=== PATIENT | male | born 1990 | race Caucasian/White ===

== ENCOUNTER 2020-09-14 17:29 | Emergency (ER) | payer OTHER ==
[~2020-09-14] VITALS: Ht 190 cm; Wt 127.0 kg
--- NOTE | 2020-09-14 17:58 | ED GU-Male ---
General Chief Complaint: - Urinary Stated Complaint: PAINFUL WITH URINATION History of Present Illness Date Seen by Provider: September 14, 2020 Time Seen by Provider: 17:50 Initial Comments 30-year-old male reports dysuria with discharge for the last few days. He did have a new partner approximately 2 weeks ago, no condoms used. No history of STDs. Denies any other complaints at this time. No history of kidney stones and no blood noted in urine. Timing/Duration: getting worse Severity/Quality: mild Location: urethral Radiation: none Activities at Onset: sexual activity Sexual Judson History: less than 2 months ago, multiple partners Associated Symptoms: denies symptoms Allergies and Home Medications Allergies Coded Allergies: No Known Drug Allergies (Unverified , 09/14/20) Home Medications Doxycycline Hyclate 100 Mg Tablet, 100 MG PO BID Prescribed by: RITESH STRANGE on 09/14/20 8053 Patient Home Medication List Home Medication List Reviewed: Yes Review of Systems Review of Systems Constitutional: no symptoms reported, see HPI Genitourinary: see HPI, burning, discharge, dysuria; denies flank pain, denies hematuria All Other Systemes Reviewed Negative Unless Noted: Yes Past Ziuuwdn-Antuns-Cqklyb Hx Past Med/Social Hx: Reviewed Nursing Past Med/Soc Hx Patient Social History Alcohol Use: Denies Use Smoking Status: Current Everyday Smoker Type Used: Cigarettes Recent Hopitalizations: No Seasonal Allergies Seasonal Allergies: No Past Medical History Surgeries: Yes (SKIN GRAFTS) Respiratory: No Cardiac: No Neurological: No Genitourinary: No Gastrointestinal: No Musculoskeletal: No Endocrine: No HEENT: No Cancer: No Blood Disorders: No Physical Exam Vital Signs Vital Signs - First Documented 09/14/20 17:50 Temp 36.5 Pulse 86 Resp 20 B/P (MAP) 135/81 (99) Pulse Ox 97 Capillary Refill : Height, Weight, BMI Height: '" Weight: lbs. oz. kg; BMI Method: General Appearance: WD/WN, no apparent distress Cardiovascular: normal peripheral pulses, regular rate, rhythm Respiratory: chest non-tender, lungs clear, normal breath sounds Gastrointestinal: normal bowel sounds, non tender, soft Back: normal inspection, no CVA tenderness, vertebral tenderness (right mid thoracic) Neurologic/Psychiatric: no motor/sensory deficits, alert, normal mood/affect, oriented x 3 Skin: normal color, warm/dry Progress/Results/Core Measures Suspected Sepsis SIRS Temperature: Pulse: Respiratory Rate: Blood Pressure / Mean: Results/Orders Lab Results Laboratory Tests Test 09/14/20 17:52 Range/Units Urine Color YELLOW Urine Clarity CLOUDY Urine pH 5.5 5-9 Urine Specific [place] 1.025 H 1.016-1.022 Urine Protein 1+ H NEGATIVE Urine Glucose (UA) NEGATIVE NEGATIVE Urine Ketones NEGATIVE NEGATIVE Urine Nitrite NEGATIVE NEGATIVE Urine Bilirubin NEGATIVE NEGATIVE Urine Urobilinogen 0.2 < = 1.0 MG/DL Urine Leukocyte Esterase 2+ H NEGATIVE Urine RBC (Auto) 2+ H NEGATIVE Urine RBC RARE /HPF Urine WBC 25-50 H /HPF Urine Squamous Epithelial Cells RARE /HPF Urine Crystals NONE /LPF Urine Bacteria TRACE /HPF Urine Casts NONE /LPF Urine Mucus NEGATIVE /LPF Urine Culture Indicated YES My Orders Orders - RITESH STRANGE Ua Culture If Indicated (09/14/20 17:35) Neis Carlos Dna Urine Test (09/14/20 17:52) Chlamydia Trachomatis Urine (09/14/20 17:52) Ceftriaxone For Im Use (Rocephin For Im (09/14/20 18:00) Lidocaine 1% Inj 20 Ml (Xylocaine 1% Inj (09/14/20 18:00) Urine Culture (09/14/20 17:52) Syphilis Antibody Screen (09/14/20 18:25) Hiv 1&2 Antibody (09/14/20 18:25) Medications Given in ED Current Medications Medications Dose Ordered Sig/Jermain Route Start Time Stop Time Status Last Admin Dose Admin Ceftriaxone Sodium 1,000 mg ONCE ONCE IM 09/14/20 18:00 09/14/20 18:01 DC 09/14/20 18:20 1,000 MG Lidocaine HCl 2.1 ml ONCE ONCE INJ 09/14/20 18:00 09/14/20 18:01 DC 09/14/20 18:20 2.1 ML Vital Signs/I&O 09/14/20 09/14/20 17:50 18:37 Temp 36.5 Pulse 86 70 Resp 20 20 B/P (MAP) 135/81 (99) 129/90 Pulse Ox 97 98 Capillary Refill : Departure Impression Primary Impression: Dysuria Additional Impression: Penile discharge, without blood Disposition: HOME, SELF-CARE Condition: Improved Departure-Patient Inst. Decision time for Depature: 18:15 Referrals: [facility] – [place] NO,LOCAL PHYSICIAN (PCP) Primary Care Physician Patient Instructions: Chlamydia (DC), Gonorrhea (DC) Add. Discharge Instructions: Avoid any sexual activity until completing all antibiotics, we will call you with the results of your tests when they are available. If any tests are positive, have partners treated as well. And avoid intercourse until they have completed full treatment. Use condoms for all sexual activity. Complete all antibiotics as prescribed. Increase water intake. You may continue with ibuprofen 800 mg alternating with Tylenol 650 mg every 4 hours for your back as needed. Establish care with a primary care provider. Return to the emergency dept for new, urgent healthcare needs. All discharge instructions reviewed with patient and/or family. Voiced understanding. Scripts Doxycycline Hyclate (Doxycycline Hyclate) 100 Mg Tablet 100 MG PO BID, #14 TAB 0 Refills Prov: RITESH STRANGE 09/14/20 RITESH STRANGE September 14, 2020 17:58
[2020-09-14] MEDS ORDERED: cefTRIAXone 1,000 MG/2.86 ml vial (IM ONLY) IM ONE (18:00)
[2020-09-14] MEDS ORDERED: LIDOCAINE 1% INJ 20 ML 20 ML VIAL INJ ONE (18:00)
[2020-09-14 18:23] LABS: BILIRUBIN,URINE NEGATIVE (NEGATIVE); CLARITY,URINE CLOUDY; COLOR,URINE YELLOW; GLUCOSE, URINE (UA) NEGATIVE (NEGATIVE); KETONES,URINE NEGATIVE (NEGATIVE); LEUKOCYTE ESTERASE ,URINE 2+ (NEGATIVE); NITRITE,URINE NEGATIVE (NEGATIVE); PH,URINE 5.5 (5-9); PROTEIN,URINE 1+ (NEGATIVE)
[2020-09-14] MEDS ORDERED: DOXY100T2 PO (18:25)
[2020-09-14 18:26] LABS: BACTERIA,URINE TRACE /HPF; RBC,URINE RARE /HPF; SQUAMOUS EPITHELIAL CELL,UR RARE /HPF; WBC,URINE 25-50 /HPF
[2020-09-14 18:37] VITALS: BP 129/90
== END 2020-09-14 18:37 | disposition home or self-care (01) ==
LOC: ER 17:32
DX: R30.0 Dysuria (principal); R36.9 Urethral discharge, unspecified; F17.210 Nicotine dependence, cigarettes, uncomplicated
CPT/HCPCS: 36415; 81000; 86703; 86780; 87077; 87088; 87185; 87491; 87591; 99284

== ENCOUNTER 2021-05-17 16:31 | Emergency (ER) | payer OTHER ==
[~2021-05-17] VITALS: Ht 190 cm; Wt 133.0 kg
[~2021-05-17 16:31] MED LIST: DOXY100T2 PO
[2021-05-17 16:40] VITALS: BP 166/88
--- NOTE | 2021-05-17 16:54 | ED Cough/URI ---
General Chief Complaint: COVID19 Suspect/Confirmed Stated Complaint: COVID POSITIVE, CONGESTION,COUGH,FEVER,DIARRHEA Source: patient Exam Limitations: no limitations History of Present Illness Date Seen by Provider: May 17, 2021 Time Seen by Provider: 16:53 Initial Comments Patient is a 30-year-old male who presents ED with flulike symptoms. Symptoms started 2 days ago. He reported body aches, fatigue, mild cough with diarrhea. Symptoms improved after taking whae-ges-ldeokfh medication. Had a positive test at home. Patient is requesting a second opinion before he can return back to work. Patient states he is feeling much better at this time. Denies sore throat, ear pain, headache, fever, abdominal pain, shortness of breath. Allergies and Home Medications Allergies Coded Allergies: No Known Drug Allergies (Unverified , 09/14/20) Patient Home Medication List Home Medication List Reviewed: Yes Doxycycline Hyclate (Doxycycline Hyclate) 100 Mg Tablet, 100 MG PO BID Prescribed by: RITESH STRANGE on 09/14/20 410 Review of Systems Review of Systems Constitutional: chills, malaise, weakness EENTM: No hearing loss, No ear pain, No nose congestion, No throat pain, No throat swelling Respiratory: cough; No short of breath, No wheezing Cardiovascular: No chest pain, No edema Gastrointestinal: No abdominal pain, No diarrhea, No nausea, No vomiting Genitourinary: No decreased output, No discharge Musculoskeletal: No back pain, No joint pain Skin: No change in color, No change in hair/nails All Other Systems Reviewed Negative Unless Noted: Yes Past Lkhgcfx-Olhrty-Mvjvvf Hx Seasonal Allergies Seasonal Allergies: No Past Medical History Surgeries: Yes (SKIN GRAFTS) Respiratory: No Cardiac: No Neurological: No Genitourinary: No Gastrointestinal: No Musculoskeletal: No Endocrine: No HEENT: No Cancer: No Blood Disorders: No Physical Exam Vital Signs - First Documented 05/17/21 16:40 Temp 36.3 Pulse 95 Resp 16 B/P (MAP) 166/88 (114) Pulse Ox 95 O2 Delivery Room Air Capillary Refill : Height: '" Weight: lbs. oz. 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 Patient requesting second opinion. Send out swab was ordered here. Results pending. Quarantine at home until results. Vital signs stable. No acute distress. Return precaution were discussed with patient. Follow-up with blood pressure reading. Patient appears in no acute distress. He states his symptoms are much better at this time. Impression Primary Impression: Viral syndrome Disposition: 01 HOME, SELF-CARE Condition: Stable Departure-Patient Inst. Decision time for Depature: 16:54 Referrals: [facility] [place] NO,LOCAL PHYSICIAN (PCP) Primary Care Physician Patient Instructions: Viral Syndrome (DC) Work/School Note: Work Release Form Date Seen in the Emergency Department: May 17, 2021 Return to Work: May 19, 2021 TAISHA FARLEY May 17, 2021 16:54
== END 2021-05-17 17:05 | disposition home or self-care (01) ==
LOC: EDUNIT# 16:31 → ER 16:35
DX: U07.1 COVID-19 (principal)
CPT/HCPCS: 87636; 99283

== ENCOUNTER 2022-01-22 17:15 | Emergency (ER) | payer SELFPAY ==
[~2022-01-22] VITALS: Ht 190 cm; Wt 150.0 kg
[2022-01-22 17:32] VITALS: BP 159/97
[2022-01-22] MEDS ORDERED: SULF-221 PO (17:53)
--- NOTE | 2022-01-22 17:54 | ED Lower Extremity ---
General Chief Complaint: Lower Extremity Stated Complaint: INGROWN TOENAIL LEFT BIG TOE Nursing Triage Note: PT REPORTS WITH LT GREAT TOE INFECTION. PER PT HE BELEIVES IT MIGHT BE AN INGROWN TOENAIL. PT HAS HAD THIS FOR ABOUT TWO WEEKS RECENTLY GETTING WORSE. PT AMB. TO FT3 WITHOUT DIFFICULTY. History of Present Illness Date Seen by Provider: Jan 22, 2022 Time Seen by Provider: 17:50 Initial Comments Patient presents to the emergency department with worsening left great toe redn ess, swelling and pain. History of ingrown toenail in the past. States that he has a 50 hour work week this week and needs the toe nail removed and taken care of. Onset: other (2 weeks) Pain/Injury Location: left 1st toe Modifying Factors: Worse With Movement Allergies and Home Medications Allergies Coded Allergies: No Known Drug Allergies (Unverified , 09/14/20) Patient Home Medication List Home Medication List Reviewed: Yes Doxycycline Hyclate (Doxycycline Hyclate) 100 Mg Tablet, 100 MG PO BID Prescribed by: RITESH STRANGE on 09/14/20 182 Sulfamethoxazole/Trimethoprim (Bactrim Ds Tablet) 800 Mg-160 Mg Tablet, 1 EACH PO BID Prescribed by: Tiffany Quintana on 01/22/22 1753 Review of Systems Constitutional: No chills, No fever Skin: change in color, change in hair/nails, other (redness, swelling and drainage left great toe) All Other Systems Reviewed Negative Unless Noted: Yes Past Unuwbil-Xxfgum-Bocnrq Hx Patient Social History Tobacco Use?: No Use of E-Cig and/or Vaping dev: Yes E-Cig or Vaping type used: Nicotine Substance use?: No Alcohol Use?: No Pt feels they are or have been: No Seasonal Allergies Seasonal Allergies: No Past Medical History Surgery/Hospitalization HX: PMH;DENIES. SURGERY;SKIN GRAFTS ABOUT TEN YEARS AGO. Surgeries: Yes (SKIN GRAFTS) Respiratory: No Cardiac: No Neurological: No Genitourinary: No Gastrointestinal: No Musculoskeletal: No Endocrine: No HEENT: No Cancer: No Blood Disorders: No Family Medical History Reviewed Nursing Family Hx Physical Exam Vital Signs Vital Signs - First Documented 01/22/22 17:32 Temp 36.5 Pulse 78 Resp 16 B/P (MAP) 159/97 (117) Pulse Ox 96 O2 Delivery Room Air Capillary Refill : Less Than 3 Seconds Height, Weight, BMI Height: '" Weight: lbs. oz. kg; 41.00 BMI Method: General Appearance: WD/WN, no apparent distress Feet: left foot infection, left foot pain, left foot soft tissue tenderness, left foot swelling Neurologic/Psychiatric: alert, normal mood/affect, oriented x 3 Skin: warm/dry, other (left medial great toe with erythema, swelling, warmth and drainage consistent with ingrown toenail) Progress/Results/Core Measures Results/Orders Vital Signs/I&O 01/22/22 17:32 Temp 36.5 Pulse 78 Resp 16 B/P (MAP) 159/97 (117) Pulse Ox 96 O2 Delivery Room Air Blood Pressure Mean: 117 Progress Progress Note : Progress Note Patient was upset that I would not remove his toenail here in the department. States that is what he came for. I told him that I would treat his infection but removing toenails on an emergent basis is not something that we do. Explained to him that he needs to infection treated and then he can follow up with PCP or grinding operator to have the nail removed. He got up and refused to stay for paperwork and left the department. I did send an antibiotic to the pharmacy. Departure Impression Primary Impression: Ingrown toenail of left foot Disposition: HOME, SELF-CARE Condition: Stable Departure-Patient Inst. Decision time for Depature: 17:52 Referrals: NO,LOCAL PHYSICIAN (PCP/Family) Primary Care Physician Patient Instructions: Ingrown Toenail (DC) Add. Discharge Instructions: 1. Home and rest. 2. Push fluids. 3. Alternate Tylenol/Ibuprofen as needed for pain. 4. Follow up with PCP as needed. 5. Start Bactrim and take as directed until finished. 6. You need to let your toenails grow longer. 7. Return here if worse or concerns. All discharge instructions reviewed with patient and/or family. Voiced understanding. Scripts Sulfamethoxazole/Trimethoprim (Bactrim Ds Tablet) 800 Mg-160 Mg Tablet 1 EACH PO BID, #20 TAB Prov: TIFFANY QUINTANA APRN 01/22/22 TIFFANY QUINTANA APRN Jan 22, 2022 17:54
== END 2022-01-22 17:55 | disposition home or self-care (01) ==
LOC: EDUNIT# 17:15 → ER 17:18
DX: L60.0 Ingrowing nail (principal); F17.290 Nicotine dependence, other tobacco product, uncomplicated; Z28.310 Unvaccinated for COVID-19
CPT/HCPCS: 99281

== ENCOUNTER 2022-03-27 20:31 | Emergency (ER) | payer OTHER ==
[~2022-03-27 20:31] MED LIST changes: +SULF-221 PO
--- NOTE | 2022-03-27 20:36 | ED Back Pain ---
General Stated Complaint: LOWER BACK PAIN Source of Information: Patient Exam Limitations: No Limitations History of Present Illness Date Seen by Provider: Mar 27, 2022 Time Seen by Provider: 20:36 Initial Comments 31-year-old male presents the emergency department today for spasms in his bilateral lower back. Symptoms started a little bit yesterday but have worsened today while he was at work. He describes it as 8/10 worse with bending or twisting motion. Minimal at rest. No loss of bowel bladder control, saddle anesthesia, lower extremity weakness numbness or tingling. no radiation. He has used ibuprofen without relief Allergies and Home Medications Allergies Coded Allergies: No Known Drug Allergies (Unverified , 09/14/20) Patient Home Medication List Home Medication List Reviewed: Yes Cyclobenzaprine HCl (Cyclobenzaprine HCl) 5 Mg Tablet, 5 MG PO Q6H Prescribed by: MARGARITO KESSLER MD on 03/27/222052 Doxycycline Hyclate (Doxycycline Hyclate) 100 Mg Tablet, 100 MG PO BID Prescribed by: RITESH STRANGE on 09/14/201824 Ketorolac Tromethamine (Ketorolac Tromethamine) 10 Mg Tablet, 10 MG PO TID Prescribed by: MARGARITO KESSLER MD on 03/27/222052 Sulfamethoxazole/Trimethoprim (Bactrim Ds Tablet) 800 Mg-160 Mg Tablet, 1 EACH PO BID Prescribed by: Tiffany Gonzales on 01/22/221752 Review of Systems Constitutional: no symptoms reported EENTM: no symptoms reported Respiratory: no symptoms reported Cardiovascular: no symptoms reported Gastrointestinal: no symptoms reported Genitourinary: no symptoms reported Musculoskeletal: back pain Skin: no symptoms reported Psychiatric/Neurological: No Symptoms Reported Past Ceqmjoc-Udwzaq-Agzwiz Hx Patient Social History Tobacco Use?: No Use of E-Cig and/or Vaping dev: No Substance use?: No Alcohol Use?: No Seasonal Allergies Seasonal Allergies: No Past Medical History Surgery/Hospitalization HX: PMH;DENIES. SURGERY;SKIN GRAFTS ABOUT TEN YEARS AGO. Surgeries: Yes (SKIN GRAFTS) Respiratory: No Cardiac: No Neurological: No Genitourinary: No Gastrointestinal: No Musculoskeletal: No Endocrine: No HEENT: No Cancer: No Blood Disorders: No Family Medical History Reviewed Nursing Family Hx No Pertinent Family Hx Physical Exam Vital Signs Capillary Refill : Height, Weight, BMI Height: '" Weight: lbs. oz. kg; 41.00 BMI Method: General Appearance: No Apparent Distress, WD/WN, Other (Mildly antalgic gait) HEENT: PERRL/EOMI, Normal ENT Inspection, Pharynx Normal Neck: Full Range of Motion, Normal Inspection, Non Tender, Supple Cardiovascular: Regular Rate, Rhythm, No Edema, No Gallop, No JVD, No Murmur, Normal Peripheral Pulses Respiratory: Chest Non Tender, Lungs Clear, Normal Breath Sounds, No Accessory Muscle Use, No Respiratory Distress Gastrointestinal: Normal Bowel Sounds, No Organomegaly, No Pulsatile Mass, Non Tender, Soft Back: Normal Inspection, No CVA Tenderness, Other (Tenderness to palpation bilateral lumbar region without any midline tenderness. No deformity or muscle spasm.) Extremity: Normal Capillary Refill, Normal Inspection, Normal Range of Motion, Non Tender, No Calf Tenderness Neurologic/Psychiatric: Alert, Oriented x3, No Motor/Sensory Deficits, Normal Mood/Affect, recreation attendant II-XII Norm as Tested Skin: Normal Color, Warm/Dry Lymphatic: No Adenopathy Progress/Results/Core Measures Results/Orders My Orders Orders - MARGARITO KESSLER DO Ketorolac Injection (Toradol Injection) (03/27/22 21:00) Cyclobenzaprine Tablet (Flexeril Tablet) (03/27/22 21:00) Rx-Cyclobenzaprine Tablet (Rx-Flexeril T (03/27/22 21:00) Departure Communication (Admissions) Patient is hemodynamically stable. No red flag symptoms. Ambulatory into the emergency department with no focal neurologic deficits, no loss of bowel or bladder control or saddle anesthesia. No evidence for cauda equina, central cord or other cord syndrome. Treated conservatively with IM Toradol, p.o. Flexeril and discharged home with oral medications Impression Primary Impression: Low back strain Qualified Codes: S39.012A - Strain of muscle, fascia and tendon of lower back, initial encounter Disposition: 01 HOME, SELF-CARE Condition: Stable Departure-Patient Inst. Referrals: NO,LOCAL PHYSICIAN (PCP/Family) Primary Care Physician Patient Instructions: Back Muscle Strain (DC) Add. Discharge Instructions: Take Toradol as needed for pain. Do not take any other anti-inflammatory medicines while taking this. Use the cyclobenzaprine, muscle relaxer as needed for muscle spasms. Perform stretching exercises as shown. Return to the emergency department for any severe concerns Scripts Ketorolac Tromethamine (Ketorolac Tromethamine) 10 Mg Tablet 10 MG PO TID for Pain for 3 Days, #9 TAB Prov: MARGARITO KESSLER DO 03/27/22 Cyclobenzaprine HCl (Cyclobenzaprine HCl) 5 Mg Tablet 5 MG PO Q6H for Muscle Spasms for 3 Days, #18 TAB Prov: MARGARITO KESSLER DO 03/27/22 Work/School Note: Work Release Form Date Seen in the Emergency Department: Mar 27, 2022 Return to Work: Mar 29, 2022 Restrictions: No Restrictions MARGARITO KESSLER DO Mar 27, 2022 20:36
[2022-03-27] MEDS ORDERED: KETO10TA PO (20:53)
[2022-03-27] MEDS ORDERED: CYCL5TAB PO (20:53)
[2022-03-27] MEDS ORDERED: RX-CYCLOBENZAPRINE 10 MG (FLEXERIL) TAB PPK#3 PO ONE (21:00)
[2022-03-27] MEDS ORDERED: KETOROLAC 60 MG/2 ML VIAL IM ONE (21:00)
[2022-03-27] MEDS ORDERED: CYCLOBENZAPRINE 10 MG (FLEXERIL) TAB PO SCH (21:00)
[2022-03-27 21:12] VITALS: BP 154/89
== END 2022-03-27 21:12 | disposition home or self-care (01) ==
LOC: EDUNIT# 20:31 → ER 20:34
DX: S39.012A Strain of muscle, fascia and tendon of lower back, initial encounter (principal); X58.XXXA Exposure to other specified factors, initial encounter
CPT/HCPCS: 99284

== ENCOUNTER 2022-06-02 19:17 | Emergency (ER) | payer OTHER ==
[~2022-06-02] VITALS: Ht 190.5 cm; Wt 132.5 kg
[~2022-06-02 19:17] MED LIST changes: +CYCL5TAB PO; +KETO10TA PO
[2022-06-02 19:23] VITALS: BP 135/84
[2022-06-02] MEDS ORDERED: IBUPROFEN 600 MG (MOTRIN) TAB PO ONE (19:45)
--- NOTE | 2022-06-02 19:54 | ED Back Pain ---
General Chief Complaint: Back Problems Stated Complaint: BACK PAIN Nursing Triage Note: PT AMB TO ED BY POV WITH C/O LOWER BACK PAIN X SEVERAL MONTHS. PT REPORTS HE WAS SEEN AND XR BY [facility] A WEEK AGO AND WAS TOLD HE HAS DEGENERATIVE DISC DISEASE. PT REPORTS PAIN HAS CONTINUED TO GET WORSE, HAS NOT TAKEN ANYTHING RECENTLY FOR THE PAIN. Source of Information: Patient Exam Limitations: No Limitations (CARRINGTON BAGLEY APRN) History of Present Illness Date Seen by Provider: Jun 02, 2022 Time Seen by Provider: 19:40 Initial Comments Patient is a 31-year-old male who presents to the emergency department for evaluation of lower back pain that has been present for 4 months. He states the pain has been progressively worsening especially over the last few weeks. Patient states he had x-rays done of his lower back last week and he states he was told he had degenerative disease in L3 and L4. He states he is working on establishing a PCP but does not see them till next month. He was given a prescription for muscle relaxers but states they did not help and he did not like how they made him feel. He has also been taking Tylenol but no other medications. States the pain is mostly in the middle and left side of his lower back. Denies any trauma preceding onset of pain. Denies any saddle anesthesia or bowel/bladder incontinence. Location: Lumbar Spine (CARRINGTON BAGLEY APRN) Allergies and Home Medications Allergies Coded Allergies: No Known Drug Allergies (Unverified , 09/14/20) Patient Home Medication List Home Medication List Reviewed: Yes (CARRINGTON BAGLEY APRN) Cyclobenzaprine HCl (Cyclobenzaprine HCl) 5 Mg Tablet, 5 MG PO Q6H Prescribed by: MARGARITO KESSLER MD on 03/27/222052 Doxycycline Hyclate (Doxycycline Hyclate) 100 Mg Tablet, 100 MG PO BID Prescribed by: RITESH STRANGE on 09/14/201824 Ketorolac Tromethamine (Ketorolac Tromethamine) 10 Mg Tablet, 10 MG PO TID Prescribed by: MARGARITO KESSLER MD on 03/27/222052 Ketorolac Tromethamine (Ketorolac Tromethamine) 10 Mg Tablet, 10 MG PO Q6H PRN for PAIN-MODERATE (5-7) Prescribed by: Carrington Bagley on 06/02/221954 Lidocaine (Lidocaine 5% Patch) 5 % Adh..patch, 1 EACH TP Q12H PRN for Neuropathic pain Prescribed by: Carrington Bagley on 06/02/221954 Sulfamethoxazole/Trimethoprim (Bactrim Ds Tablet) 800 Mg-160 Mg Tablet, 1 EACH PO BID Prescribed by: Tiffany Gonzales on 01/22/221752 Review of Systems Constitutional: no symptoms reported EENTM: no symptoms reported Respiratory: no symptoms reported Cardiovascular: no symptoms reported Gastrointestinal: no symptoms reported Genitourinary: no symptoms reported Musculoskeletal: back pain Skin: no symptoms reported Psychiatric/Neurological: No Symptoms Reported (CARRINGTON BAGLEY APRN) Past Mllauvc-Brrbia-Elfxoy Hx Patient Social History Tobacco Use?: Yes Smokeless Tobacco Frequency: Current Everyday User Use of E-Cig and/or Vaping dev: Yes E-Cig or Vaping type used: Nicotine Use of E-Cig and/or Vaping Dimitry: Current Everyday User Substance use?: No Alcohol Use?: No Pt feels they are or have been: No (CARRINGTON BAGLEY APRN) Immunizations Up To Date Influenza Vaccine Up-to-Date: No; Not Current (CARRINGTON BAGLEY APRN) Seasonal Allergies Seasonal Allergies: No (CARRINGTON BAGLEY APRN) Past Medical History Surgery/Hospitalization HX: PMH;DENIES. SURGERY;SKIN GRAFTS ABOUT TEN YEARS AGO. Surgeries: Yes (SKIN GRAFTS) Respiratory: No Cardiac: No Neurological: No Genitourinary: No Gastrointestinal: No Musculoskeletal: No Endocrine: No HEENT: No Cancer: No Blood Disorders: No (CARRINGTON BAGLEY APRN) Family Medical History No Pertinent Family Hx (CARRINGTON BAGLEY APRN) Physical Exam Vital Signs Vital Signs - First Documented 06/02/22 19:23 Temp 36.7 Pulse 94 Resp 16 B/P (MAP) 135/84 (101) Pulse Ox 97 O2 Delivery Room Air (SIERRA,ELIZABETH K DO) Vital Signs Capillary Refill : Less Than 3 Seconds (CARRINGTON BAGLEY APRN) Height, Weight, BMI Height: '" Weight: lbs. oz. kg; 36.00 BMI Method: General Appearance: No Apparent Distress, WD/WN Neck: Non Tender, Supple Respiratory: Chest Non Tender, Lungs Clear, Normal Breath Sounds, No Accessory Muscle Use, No Respiratory Distress Gastrointestinal: Non Tender, Soft Neurologic/Psychiatric: Alert, Oriented x3, No Motor/Sensory Deficits, Normal Mood/Affect Skin: Normal Color, Warm/Dry (CARRINGTON BAGLEY APRN) Progress/Results/Core Measures Results/Orders Medications Given in ED Current Medications Medications Dose Ordered Sig/Jermain Route Start Time Stop Time Status Last Admin Dose Admin Ibuprofen 600 mg ONCE ONCE PO 06/02/22 19:45 06/02/22 19:48 DC 06/02/22 20:03 600 MG Tramadol HCl 50 mg ONCE ONCE PO 06/02/22 19:45 06/02/22 19:48 DC 06/02/22 20:03 50 MG (SIERRA,ELIZABETH K DO) Vital Signs/I&O 06/02/22 19: Temp 36.7 Pulse 94 Resp 16 B/P (MAP) 135/84 (101) Pulse Ox 97 O2 Delivery Room Air (SIERRA,ELIZABETH K DO) Blood Pressure Mean: 101 Progress Progress Note : Progress Note Patient is nontoxic and well-hydrated on exam. Vital signs are reassuring. Low suspicion for epidural abscess or hematoma at this time. Patient was ambulatory to the exam room without issue. No significant asymmetrical lower extremity weakness. No saddle anesthesia or bowel/bladder incontinence. No indication for further imaging at this time. Will discharge home with prescription for NSAIDs and lidocaine patches. Patient was given a dose of ibuprofen and tramadol in the emergency department. Discussed importance of follow-up with PCP for further evaluation. I discussed that patient may ultimately need to see an ortho-spine physician or neurosurgeon for further specialized evaluation. (CARRINGTON BAGLEY APRN) Departure Impression Primary Impression: Back pain Qualified Codes: M54.50 - Low back pain, unspecified Disposition: 01 HOME, SELF-CARE Condition: Stable Departure-Patient Inst. Decision time for Depature: 19:50 (CARRINGTON BAGLEY APRN) Referrals: NO,LOCAL PHYSICIAN (PCP/Family) Primary Care Physician Patient Instructions: Low Back Pain (DC) Scripts Lidocaine (Lidocaine 5% Patch) 5 % Adh..patch 1 EACH TP Q12H PRN for Neuropathic pain MDD 2 for 3 Days, #6 PATCH 0 Refills 2 patches max for 12 hours, then 12 hours patch-free period. Prov: CARRINGTON BAGLEY APRN 06/02/22 Ketorolac Tromethamine (Ketorolac Tromethamine) 10 Mg Tablet 10 MG PO Q6H PRN for PAIN-MODERATE (5-7) for 5 Days, #20 TAB 0 Refills Prov: CARRINGTON BAGLEY APRN 06/02/22 ATTENDING PHYSICIAN NOTE: I WAS PHYSICALLY PRESENT ER PHYSICIAN, BUT I WAS NOT INVOLVED IN ANY DECISION MAKING OR ANY CARE OF THIS PATIENT, AND I AM NOT COLLABORATING PHYSICIAN. (ELIZABETH ESQUIVEL DO) CARRINGTON BAGLEY APRN Jun 02, 2022 19:54 ELIZABETH ESQUIVEL DO Jun 03, 2022 03:35
[2022-06-02] MEDS ORDERED: LIDO700A45 TP (19:55)
[2022-06-02] MEDS ORDERED: KETO10TA PO (19:55)
== END 2022-06-02 20:04 | disposition home or self-care (01) ==
LOC: EDUNIT# 19:17 → ER 19:18
DX: M54.50 Low back pain, unspecified (principal); F17.290 Nicotine dependence, other tobacco product, uncomplicated; Z28.310 Unvaccinated for COVID-19
CPT/HCPCS: 99283